=== PATIENT | male | born 1970 | race Caucasian/White ===

== ENCOUNTER 2016-12-22 16:31 | Emergency (ER) | payer OTHER ==
[~2016-12-22] VITALS: Ht 193 cm; Wt 146.5 kg
[2016-12-22 17:01] VITALS: BP 174/91
== END 2016-12-22 17:53 | disposition home or self-care (01) ==
LOC: ER 16:36
DX: T17.228A Food in pharynx causing other injury, initial encounter (principal); Y99.8 Other external cause status; Y93.89 Activity, other specified; Y92.89 Other specified places as the place of occurrence of the external cause

== ENCOUNTER 2022-11-10 16:17 | Emergency (ER) | payer OTHER ==
[~2022-11-10] VITALS: Ht 193 cm; Wt 148.6 kg
[2022-11-10] MEDS ORDERED: TETRACAINE HCL 0.5% OPTH(EYE) SOLN 4ML LEFTEYE ONE (18:30)
[2022-11-10] MEDS ORDERED: FLUORESCEIN SOD OPTH TEST STRIP LEFTEYE ONE (18:30)
[2022-11-10 18:43] VITALS: BP 144/84; PULSE 65; RESP 18; TEMP 97.6; O2SAT 97
[2022-11-10] MEDS ORDERED: ERY05OO OP (20:31)
[2022-11-10] MEDS ORDERED: IBUP-1456 PO (20:31)
== END 2022-11-10 20:55 | disposition home or self-care (01) ==
LOC: ER 16:17
DX: S05.02XA Injury of conjunctiva and corneal abrasion without foreign body, left eye, initial encounter (principal); Z88.0 Allergy status to penicillin; X58.XXXA Exposure to other specified factors, initial encounter; Y93.89 Activity, other specified; Y92.89 Other specified places as the place of occurrence of the external cause; Y99.8 Other external cause status